=== PATIENT | female | born 1960 | race Caucasian/White ===

== ENCOUNTER 2020-07-09 22:32 | Emergency (ER) | payer MEDICAID ==
[~2020-07-09] VITALS: Ht 167.6 cm; Wt 63.5 kg
[2020-07-09 22:50] VITALS: BP_SYST 137
[2020-07-09 23:20] LABS: BILIRUBIN,URINE NEGATIVE (NEGATIVE); BLOOD, URINE 2+ (NEGATIVE); CLARITY/URINE CLEAR (CLEAR); COLOR,URINE YELLOW (YELLOW); GLUCOSE,URINE NEGATIVE (NEGATIVE); KETONES,URINE NEGATIVE (NEGATIVE); LEUKOCYTE ESTERASE ,URINE 1+ (NEGATIVE); NITRITE, URINE NEGATIVE (NEGATIVE); PROTEIN URINE NEGATIVE (NEGATIVE); UROBILINOGEN,URINE 0.2 (0.2-1.0)
[2020-07-09] MEDS ORDERED: LIDOCAINE/EPI 1% 1:100000 20 ML VIAL INJ ONE (23:30)
[2020-07-09 23:32] LABS: BACTERIA,URINE FEW /HPF (None Seen)
[2020-07-10 00:11] VITALS: BP_SYST 137
[2020-07-10] MEDS ORDERED: NITROFURANTOIN MONOHYD/M-CRYST 100 MG CAPSULE PO ONE (00:15)
== END 2020-07-10 00:12 | disposition home or self-care (01) ==
LOC: SED 22:32
DX: N76.0 Acute vaginitis (principal); N39.0 Urinary tract infection, site not specified; Z88.1 Allergy status to other antibiotic agents
CPT/HCPCS: 81000-TC; 87086; 99283

== ENCOUNTER 2020-07-23 20:30 | Emergency (ER) | payer MEDICAID ==
[~2020-07-23] VITALS: Ht 167.6 cm; Wt 63.5 kg
[2020-07-23 20:50] VITALS: BP_SYST 145
[2020-07-24] MEDS ORDERED: KETOROLAC TROMETHAMINE 60 MG/2 ML VIAL IM ONE (00:45)
[2020-07-24 02:00] VITALS: BP_SYST 145
== END 2020-07-24 02:00 | disposition home or self-care (01) ==
LOC: SED 20:30
DX: S82.142A Displaced bicondylar fracture of left tibia, initial encounter for closed fracture (principal); Z88.6 Allergy status to analgesic agent; W01.0XXA Fall on same level from slipping, tripping and stumbling without subsequent striking against object, initial encounter; Y93.01 Activity, walking, marching and hiking; Y92.89 Other specified places as the place of occurrence of the external cause; Y99.8 Other external cause status
CPT/HCPCS: 29505; 73564; 96372; 99283; J1885

== ENCOUNTER 2023-10-13 00:25 | Emergency (ER) | payer OTHER, MEDICAID ==
[~2023-10-13] VITALS: Ht 167.6 cm; Wt 67.1 kg
[2023-10-13 00:31] VITALS: BP_SYST 123; PULSE 81; RESP 20; TEMP 97.6; O2SAT 98
[2023-10-13 03:42] VITALS: BP_SYST 149; PULSE 81; RESP 20; TEMP 97.6; O2SAT 98
== END 2023-10-13 03:42 | disposition home or self-care (01) ==
LOC: SED 00:25
DX: S92.352A Displaced fracture of fifth metatarsal bone, left foot, initial encounter for closed fracture (principal); Z88.1 Allergy status to other antibiotic agents; W19.XXXA Unspecified fall, initial encounter; Y93.89 Activity, other specified; Y92.89 Other specified places as the place of occurrence of the external cause; Y99.8 Other external cause status
CPT/HCPCS: 99283